=== PATIENT | male | born 1960 ===

== ENCOUNTER 2021-05-02 14:20 | Outpatient (CLI) | payer BC, SELFPAY | END 2021-05-02 14:21 | disposition home or self-care (01) | LOC: ANHAUDIO 14:22 | PROVIDERS: PCP Internal Medicine; Visit Provider Internal Medicine | DX: H90.3 Sensorineural hearing loss, bilateral (principal) | CPT/HCPCS: 92557; 92567 ==

== ENCOUNTER 2022-03-30 01:29 | Day surgery (SDC) | payer BC, SELFPAY ==
[2022-03-20 10:05] VITALS: BMI 29.9
--- NOTE | 2022-03-29 14:57 | PM.HPGS ---
History of Present Illness History of Present Illness Consent: Risks, benefits, and alternatives have been discussed and questions answered. Patient agrees to proceed with procedure. Chief complaint: neoplasm screening Narrative: Emeterio Sinha is a 62 year old male Referred for colon cancer screening. It has been 10 years since his last colonoscopy. Review of Systems Review of Systems: All systems reviewed & are unremarkable except as noted in HPI and below PMFSH Past Medical History Medical History Skin cancer Wears glasses Surgical History Surgical History Hx of cholecystectomy (~03/2015) Total knee replacement status (~10/2013) Total knee replacement status (~08/2013) Family History Family History Father Family history of bronchitis Family history of dementia Patient's father is Mother Patient's mother is in good health Sibling Patient's sister is in good health Patient's brother is in good health Social History Social History Smoking status: Never smoker Second hand tobacco smoke exposure: No Alcohol intake: current Drinks per week: 2 Substance use: never Substance use type: does not use Lack of Transportation: No Lack of Food: Never True Current Housing: I Have Housing Concerned About Future Housing: No Difficulty Paying Gas/Electric Bills: No Difficulty Paying for Meds: No Currently Unemployed: No Education: Bachelor's Degree Difficulty w/ Childcare or Family Care: No Living arrangements: with family Spiritual care concerns: No Meds Home Medications and Allergies Home Medications Medication Instructions Recorded Confirmed Type multivitamin (Multiple Vitamins 1 tablet PO DAILY 06/24/19 03/20/22 History tablet) melatonin 12 mg tablet 12 mg PO PRN 01/13/20 03/20/22 History fluticasone 250 mcg-salmeterol 50 1 inh inhalation BID #180 ea 12/02/21 03/20/22 Rx mcg/dose blistr powdr for inhalation (Advair Diskus) calcium carbonate 600 mg calcium 600 mg PO DAILY 02/03/22 03/20/22 History (1,500 mg) tablet (Calcium) garlic 300 mg capsule 300 mg PO DAILY 02/03/22 03/20/22 History omega 6-nay-xqi-fish oil 100 100 cap PO DAILY 02/03/22 03/20/22 History mg-160 mg-1,000 mg capsule (Fish Oil) psyllium husk 0.4 gram capsule 0.4 g PO DAILY 02/03/22 03/20/22 History (Metamucil) Allergies Allergy/AdvReac Type Severity Reaction Status Date / Time No Known Allergies Allergy Verified 03/30/22 08:11 Exam Const: General: alert Orientation/consciousness: patient oriented x3 Resp: Auscultation: clear to auscultation bilaterally Cardio: Rhythm: regular rhythm GI: GI Palp: Yes Soft to palpation and No Tenderness to palpation present (GI) Neuro: General: patient oriented x3 Assessment and Plan Assessment and plan (1) Colon cancer screening: Code(s): Z12.11 - Encounter for screening for malignant neoplasm of colon Status: Acute Assessment and Plan: Colonoscopy with possible biopsy or polypectomy or cautery or injection of substances.
[2022-03-30 08:24] VITALS: BP 125/90; PULSE 79; RESP 18; TEMP 36.3; O2SAT 99
[2022-03-30] MEDS: LACTATED RINGERS 1,000 ML 150 ML IV CONT (08:26)
--- NOTE | 2022-03-30 08:56 | WPDANESEPPF ---
Anes - Initial Pre Proc Eval Procedure: Operation Date: 03/30/22 09:30 Proposed Procedures p Screening Colonoscopy - Esau Vaughn MD Date/Time: 03/30/22 08:56 Surgeon: Esau Vaughn MD Pre Op Diagnosis: neoplasm screening Patient Data Age: 62 Gender: M Height: 1.83 m Weight: 101.6 kg Last Vital Signs Temp 97.4 F L 03/30/22 08:24 Pulse 79 03/30/22 08:24 Resp 18 03/30/22 08:24 BP 125/90 03/30/22 08:24 Pulse Ox 99 03/30/22 08:24 O2 Del Method Room Air 03/30/22 08:24 Allergies Allergy/AdvReac Type Severity Reaction Status Date / Time No Known Allergies Allergy Verified 03/30/22 08:11 Home Medications Medication Instructions Recorded Confirmed Type multivitamin (Multiple Vitamins 1 tablet PO DAILY 06/24/19 03/20/22 History tablet) melatonin 12 mg tablet 12 mg PO PRN 01/13/20 03/20/22 History fluticasone 250 mcg-salmeterol 50 1 inh inhalation BID #180 ea 12/02/21 03/20/22 Rx mcg/dose blistr powdr for inhalation (Advair Diskus) calcium carbonate 600 mg calcium 600 mg PO DAILY 02/03/22 03/20/22 History (1,500 mg) tablet (Calcium) garlic 300 mg capsule 300 mg PO DAILY 02/03/22 03/20/22 History omega 4-lff-mtm-fish oil 100 100 cap PO DAILY 02/03/22 03/20/22 History mg-160 mg-1,000 mg capsule (Fish Oil) psyllium husk 0.4 gram capsule 0.4 g PO DAILY 02/03/22 03/20/22 History (Metamucil) Patient hx anesthesia problems: none Family hx anesthesia problems: none Results Review: All pre-operative results and documents have been reviewed as part of the pre-operative evaluation. [facility] Past Medical History Medical History Skin cancer Wears glasses Surgical History Surgical History Hx of cholecystectomy (~03/2015) Total knee replacement status (~10/2013) Total knee replacement status (~08/2013) Family History Family History Father Family history of bronchitis Family history of dementia Patient's father is Mother Patient's mother is in good health Sibling Patient's sister is in good health Patient's brother is in good health Social History Social History (Updated 02/03/22 @ 10:21 by Jessica Hamilton CMA) Smoking status: Never smoker Second hand tobacco smoke exposure: No Alcohol intake: current Drinks per week: 2 Substance use: never Substance use type: does not use Lack of Transportation: No Lack of Food: Never True Current Housing: I Have Housing Concerned About Future Housing: No Difficulty Paying Gas/Electric Bills: No Difficulty Paying for Meds: No Currently Unemployed: No Education: Bachelor's Degree Difficulty w/ Childcare or Family Care: No Living arrangements: with family Spiritual care concerns: No Anes - Eval Final PreProcedure Day of Procedure 03/30/22 08:56 Patient weight: normal Heart: regular rate and rhythm Lungs: clear to auscultation Airway: Mallampati scale class II Neurological: alert and oriented Last oral intake: >/= 8 hours ASA classification: II Emergent: no Anesthetic plan: proceed Anesthesia type and monitoring: general GIVS and standard monitoring Results Review: All pre-operative results and documents have been reviewed as part of the pre-operative evaluation. Informed Consent: The patient's anesthetic plan and its attendant risks and benefits were discussed with the patient/family/POA. Questions were solicited and answers provided to the satisfaction of the patient/family/POA.
[2022-03-30 09:45] VITALS: BP 109/75; PULSE 67; RESP 21; O2SAT 95
[2022-03-30 09:55] VITALS: BP 113/79; PULSE 62; RESP 15; O2SAT 97
[2022-03-30 10:05] VITALS: BP 119/79; PULSE 64; RESP 17; O2SAT 98
== END 2022-03-30 10:12 | disposition home or self-care (01) ==
PROVIDERS: PCP Internal Medicine; Visit Provider Internal Medicine Gastroenterology
PROC: 0DJD8ZZ Inspection of Lower Intestinal Tract, Via Natural or Artificial Opening Endoscopic (ICD-10-PCS; CPT 45378; principal; 2022-03-30 09:30)
DX: Z12.11 Encounter for screening for malignant neoplasm of colon (principal); K64.8 Other hemorrhoids
CPT/HCPCS: 45378; J2704; J7120